=== PATIENT | female | born 1985 | race Hispanic/Latino ===

== ENCOUNTER 2018-02-21 17:00 | Observation (INO) | payer BC ==
[~2018-02-21] VITALS: Ht 154.9 cm; Wt 98.4 kg
[2018-02-21 18:01] LABS: APPEARANCE,URINE Clear (CLEAR); BILIRUBIN,URINE Negative (NEGATIVE); COLOR,URINE Yellow (YELLOW); GLUCOSE, URINE (UA) Negative (NEGATIVE); KETONES,URINE Negative (NEGATIVE); LEUKOCYTE ESTERASE ,URINE Negative (NEGATIVE); NITRATE,URINE Negative (NEGATIVE); OCCULT BLOOD,URINE Negative (NEGATIVE); PROTEIN,URINE Negative (NEGATIVE); UROBILINOGEN,URINE 0.2 mg/dL (0.2-1.0)
[2018-02-21] MEDS ORDERED: CEFI400C PO (18:39)
[2018-02-21] MEDS ORDERED: LACTATED RINGERS 1000ML IV SCH (18:45)
== END 2018-02-21 20:40 | disposition home or self-care (01) ==
LOC: EDH 17:00 → LDH 17:45
PROVIDERS: ADMIT Obstetrics & Gynecology; ATTEND Obstetrics & Gynecology
DX: O60.03 Preterm labor without delivery, third trimester (principal); Z3A.35 35 weeks gestation of pregnancy
CPT/HCPCS: 76819; 81003; 99283; G0378 ×3; 96360; 96361

== ENCOUNTER 2018-02-26 14:38 | Observation (INO) | payer BC ==
[~2018-02-26] VITALS: Ht 154.9 cm; Wt 99.8 kg
[~2018-02-26 14:38] MED LIST: CEFI400C PO
[2018-02-26 15:22] LABS: APPEARANCE,URINE Clear (CLEAR); BILIRUBIN,URINE Negative (NEGATIVE); COLOR,URINE Yellow (YELLOW); GLUCOSE, URINE (UA) Negative (NEGATIVE); KETONES,URINE Trace mg/dL (NEGATIVE); LEUKOCYTE ESTERASE ,URINE Negative (NEGATIVE); NITRATE,URINE Negative (NEGATIVE); OCCULT BLOOD,URINE Negative (NEGATIVE); PH,URINE 6.5 (5.0-8.0); PROTEIN,URINE Negative (NEGATIVE)
[2018-02-26] MEDS ORDERED: CELESTONE SOLUSPAN 6 MG/ML 5ML VIAL IM SCH (16:00)
== END 2018-02-26 16:15 | disposition home or self-care (01) ==
LOC: LDH 14:38
PROVIDERS: ADMIT Obstetrics & Gynecology; ATTEND Obstetrics & Gynecology
DX: O99.323 Drug use complicating pregnancy, third trimester (principal); F15.90 Other stimulant use, unspecified, uncomplicated; Z3A.36 36 weeks gestation of pregnancy; Z87.442 Personal history of urinary calculi
CPT/HCPCS: 81003; 96372; G0378 ×3; J0702

== ENCOUNTER 2021-09-21 15:06 | Emergency (ER) | payer BC ==
[~2021-09-21] VITALS: Ht 157.5 cm; Wt 92.1 kg
[2021-09-21 15:33] LABS: BASOPHILS % (AUTO) 0.3 % (0.0-5.0); EOSINOPHILS % (AUTO) 0.9 % (0.0-8.0); HEMATOCRIT 40.3 % (36-48); LYMPHOCYTES % (AUTO) 28.1 % (21.0-51.0); MEAN CORPUSCULAR HEMOGLOBIN 26.7 pg (27.0-33.0); MEAN CORPUSCULAR HGB CONC 32.5 g/dL (32.0-36.0); MEAN CORPUSCULAR VOLUME 82.1 fL (79-99); MONOCYTES % (AUTO) 5.4 % (3.0-13.0); NEUTROPHILS % (AUTO) 65.1 % (40.0-77.0); PLATELET COUNT (AUTO) 217 K/uL (130-400); RED BLOOD CELL COUNT(AUTO) 4.91 MIL/uL (4.00-5.50); WHITE BLOOD COUNT (AUTO) 8.7 K/uL (4.8-10.8)
[2021-09-21 15:34] LABS: APPEARANCE,URINE Clear (CLEAR); BILIRUBIN,URINE Negative (NEGATIVE); COLOR,URINE Yellow (YELLOW); GLUCOSE, URINE (UA) Negative (NEGATIVE); KETONES,URINE Negative (NEGATIVE); LEUKOCYTE ESTERASE ,URINE Trace (NEGATIVE); NITRATE,URINE Negative (NEGATIVE); OCCULT BLOOD,URINE Trace (NEGATIVE); PROTEIN,URINE Negative (NEGATIVE); UROBILINOGEN,URINE 0.2 mg/dL (0.2-1.0)
[2021-09-21 15:37] LABS: HCG,QUAL RESULT NEGATIVE (NEGATIVE)
[2021-09-21 15:43] LABS: CREATININE 0.8 mg/dL (0.5-1.5); POTASSIUM 3.9 mmol/L (3.5-5.1)
[2021-09-21 15:52] LABS: ALBUMIN 3.8 g/dL (3.5-5.0); BILIRUBIN,TOTAL 0.7 mg/dL (0.2-1.0); TOTAL PROTEIN, SERUM 8.3 g/dL (6.0-8.3)
[2021-09-21 16:07] LABS: BACTERIA,URINE Few /HPF (None Seen); MUCUS,URINE Rare LPF (None Seen); RBC,URINE 0-1 /HPF (0-1); SQUAMOUS EPITHELIAL CELL,UR Few /HPF (0-2)
[2021-09-21] MEDS ORDERED: MORPHINE 4 MG SYG IVP ONE (17:30)
[2021-09-21] MEDS ORDERED: ONDANSETRON 4MG INJ IVP ONE (17:30)
[2021-09-21] MEDS ORDERED: 0.9%NACL 1000ML 1,000 ML IV ONE (17:30)
[2021-09-21] MEDS ORDERED: IOHEXOL 350 MG/ML 100ML INFUS..BTL IV ONE (17:32)
[2021-09-21] MEDS ORDERED: NAPR500T6 PO (19:09)
[2021-09-21 19:16] VITALS: BP 121/70
== END 2021-09-21 19:24 | disposition home or self-care (01) ==
LOC: EDH 15:06
DX: R10.33 Periumbilical pain (principal); Z79.1 Long term (current) use of non-steroidal anti-inflammatories (NSAID)
CPT/HCPCS: 99285; 74177; 96374; 76856; 96361; 96375; 80053; 85025; 81001; 81025; 36415; J7030; J2405; J2270; Q9967

== ENCOUNTER 2021-12-20 16:41 | Emergency (ER) | payer BC ==
[~2021-12-20] VITALS: Ht 157.5 cm; Wt 93.9 kg
[~2021-12-20 16:41] MED LIST changes: +NAPR500T6 PO
[2021-12-20 17:22] LABS: BASOPHILS % (AUTO) 0.4 % (0.0-5.0); EOSINOPHILS % (AUTO) 1.6 % (0.0-8.0); HEMATOCRIT 38.8 % (36-48); LYMPHOCYTES % (AUTO) 25.2 % (21.0-51.0); MEAN CORPUSCULAR HEMOGLOBIN 28.2 pg (27.0-33.0); MEAN CORPUSCULAR HGB CONC 34.3 g/dL (32.0-36.0); MEAN CORPUSCULAR VOLUME 82.4 fL (79-99); MONOCYTES % (AUTO) 5.3 % (3.0-13.0); NEUTROPHILS % (AUTO) 67.2 % (40.0-77.0); PLATELET COUNT (AUTO) 195 K/uL (130-400); RED BLOOD CELL COUNT(AUTO) 4.71 MIL/uL (4.00-5.50); RED CELL DISTRIBUTION WIDTH 13.2 % (11.0-15.5); WHITE BLOOD COUNT (AUTO) 6.9 K/uL (4.8-10.8)
[2021-12-20] MEDS ORDERED: MORPHINE 2 MG SYG IVP ONE (17:30)
[2021-12-20] MEDS ORDERED: LACTATED RINGERS 1000ML 1,000 ML IV ONE (17:30)
[2021-12-20] MEDS ORDERED: ONDANSETRON 4MG INJ IVP ONE (17:30)
[2021-12-20 17:31] LABS: CREATININE 0.9 mg/dL (0.5-1.5); POTASSIUM 3.7 mmol/L (3.5-5.1)
[2021-12-20 17:36] LABS: ALBUMIN 4.3 g/dL (3.5-5.0); TOTAL PROTEIN, SERUM 8.4 g/dL (6.0-8.3)
[2021-12-20 17:36] LABS: APPEARANCE,URINE CLEAR (CLEAR); BILIRUBIN,URINE NEGATIVE (NEGATIVE); COLOR,URINE LIGHT-YELLOW (YELLOW); GLUCOSE, URINE (UA) NEGATIVE (NEGATIVE); KETONES,URINE NEGATIVE (NEGATIVE); LEUKOCYTE ESTERASE ,URINE NEGATIVE Leu/uL (NEGATIVE); NITRATE,URINE NEGATIVE (NEGATIVE); OCCULT BLOOD,URINE NEGATIVE (NEGATIVE); PH,URINE 6.5 (5.0-8.0); PROTEIN,URINE NEGATIVE (NEGATIVE); UROBILINOGEN,URINE 0.2 mg/dL (0.2-1.0)
[2021-12-20] MEDS ORDERED: LACTATED RINGERS 1000ML IV ONE (17:36)
[2021-12-20 17:39] LABS: BACTERIA,URINE RARE /HPF (None Seen); MUCUS,URINE RARE LPF (None Seen); OTHER CASTS, URINE 1 /LPF (None Seen); SQUAMOUS EPITHELIAL CELL,UR MOD /HPF (0-2)
[2021-12-20 17:42] LABS: HCG,QUALITATIVE URINE NEGATIVE (NEGATIVE)
[2021-12-20 20:30] VITALS: BP 110/65
== END 2021-12-20 20:44 | disposition home or self-care (01) ==
LOC: EDH 16:41
DX: R10.9 Unspecified abdominal pain (principal); Z98.890 Other specified postprocedural states; Z79.899 Other long term (current) drug therapy
CPT/HCPCS: 99284; 96374; 76856; 96361; 96375; 80053; 83690; 85025; 81001; 81025; 36415; J7120; J2405